=== PATIENT | female | born 1975 | race Caucasian/White ===

== ENCOUNTER 2016-09-14 15:59 | Emergency (ER) | payer SELFPAY ==
[~2016-09-14] VITALS: Ht 157.5 cm; Wt 108.0 kg
[2016-09-14 16:01] VITALS: BP 177/95; PULSE 78; RESP 18; TEMP 98.1; O2SAT 95
[2016-09-14] MEDS ORDERED: predniSONE 20 MG TAB PO ONE (18:15)
[2016-09-14] MEDS ORDERED: RESP: ALBUTEROL 2.5 MG/3 ML NEB (SCH) INH ONE (18:15)
--- NOTE | 2016-09-14 18:16 | PD ---
HPI Chief Complaint: Cold / Flu Symptoms Time Seen by Provider: 18:10 Travel History International Travel<30 days: No Contact w/Intl Traveler<30days: No Traveled to known affect area: No History of Present Illness HPI 41-year-old female presents to the emergency Department with complaint of cough , nasal congestion, low-grade fever 3 days. Reports MAXIMUM TEMPERATURE of 99.6 yesterday. Denies ear pain or sore throat. Reports chest tightness. Denies chest pain, shortness of breath. Denies abdominal pain, nausea, vomiting. This cough exacerbations are horrible to the point where she feels like she can't catch her breath during them. Denies wheezing. Denies history of asthma, COPD. Denies tobacco use. Has not taken any medications or tried any treatments to alleviate her symptoms. No known aggravating or relieving factors. Allergies to shellfish. No other modifying factors or associated signs and symptoms. PFSH Past Medical History Hx Anticoagulant Therapy: No Cardiovascular Problems: Yes (heart murmur) Chemotherapy: No Cerebrovascular Accident: No Diabetes: No Diminished Hearing: No Respiratory: No Myocardial Infarction: No ?: Not : 1 Para: 0 Miscarriage: 0 : 1 Past Surgical History Hysterectomy: No Social History Alcohol Use: No Tobacco Use: No Substance Use: No Allergies-Medications (Allergen,Severity, Reaction): Coded Allergies: Shellfish (Verified Allergy, Severe, 09/14/16) Reported Meds & Prescriptions Reported Meds & Active Scripts Active Azithromycin 500 Mg Tab 500 Mg PO DAILY Nasonex Nasal Rudy (Mometasone Furoate) 50 Mcg/Act Naspr 2 Rudy EACH NARE DAILY PRN Tessalon Perles (Benzonatate) 100 Mg Cap 100 Mg PO TID PRN Deltasone (Prednisone) 20 Mg Tab 40 Mg PO DAILY 4 Days start 09/15/2016 Proair Hfa 8.5 GM Inh (Albuterol Sulfate) 90 Mcg/Act Aer 2 Puff INH Q4-6H PRN 108 mcg/actuation Review of Systems Except as stated in HPI: all other systems reviewed are Neg Physical Exam Narrative GENERAL: Well-nourished, well-developed patient, in no acute distress; afebrile , nontoxic-appearing SKIN: Warm and dry. No rash. HEAD: Atraumatic. Normocephalic. EYES: Pupils equal and round at 3 mm with brisk reaction. No scleral icterus. No injection or drainage. PERRLA. ENT: Mucosa pink and moist. No erythema or exudates. No uvular edema. No uvular , palatal, or tonsillar deviation. Airway patent. EARS: Bilateral pinnae and external canals appear within normal limits. Bilateral tympanic membranes without erythema, dullness or perforation. NECK: Trachea midline. No lymphadenopathy. CARDIOVASCULAR: Regular rate and rhythm. No murmur appreciated. RESPIRATORY: No accessory muscle use. Clear to auscultation with decreased lung sounds in bilateral bases. Breath sounds equal bilaterally. GASTROINTESTINAL: Abdomen soft, non-tender, nondistended. Hepatic and splenic margins not palpable. Bowel sounds are active 4 quadrants. MUSCULOSKELETAL: No obvious deformities. No clubbing. No cyanosis. No edema. NEUROLOGICAL: Awake and alert. Oriented 3. No obvious cranial nerve deficits. Motor grossly within normal limits. Normal speech. Moves all extremities. 5/5 strength to all extremities. PSYCHIATRIC: Appropriate mood and affect; insight and judgment normal. Data Data Last Documented VS Vital Signs Date Time Temp Pulse Resp B/P Pulse Ox O2 Delivery O2 Flow Rate FiO2 09/14/16 16:01 98.1 78 18 177/95 95 Room Air Orders Influenzae A/B Antigen (09/14/16 18:03) Chest, Single Ap (09/14/16 18:03) Prednisone (Deltasone) (09/14/16 18:15) Albuterol Neb (Albuterol Neb) (09/14/16 18:15) MDM Medical Decision Making Medical Screen Exam Complete: Yes Emergency Medical Condition: Yes Medical Record Reviewed: Yes Differential Diagnosis Bronchitis, influenza, pneumonia, upper respiratory infection Narrative Course 41-year-old female with cold/flu symptoms 3 days. Patient is afebrile nontoxic appearing in the ER. Reports MAXIMUM TEMPERATURE 99.6 yesterday. Lung sounds are clear and equal with decreased lung sounds in bilateral bases. She is in no acute distress and without retractions or tachypnea. Oxygen saturation is 95% on room air. Influenza and chest x-ray ordered. Albuterol nebulizer and Deltasone ordered. 1852: Influenza negative. Patient reports improvement in symptoms after breathing treatment. Denies chest tightness at this time. 1909: Chest x-ray with no acute findings. Discussed viral illness and symptoms treatment. Tessalon Perles, pro-air inhaler, Deltasone, Nasonex nasal spray prescribed for home. Patient is requesting antibiotics for home. I discussed viral illness and antibiotic therapy and patient verbalized understanding and agreement and still is requesting a a prescription. Azithromycin prescribed for home. Patient is medically cleared and stable for discharge. Discussed reasons to return to the emergency department. Instructed patient to follow up with primary care provider. Patient agrees with treatment plan. The patients vital signs are stable and the patient is stable for outpatient follow-up and treatment. Patient discharged home, stable and in no acute distress. Diagnosis Primary Impression: Bronchitis Referrals: Primary Care Physician Patient Instructions: Acute Bronchitis (ED), Cold Symptoms (ED), General Instructions, Safe Use of Cough and Cold Medicines (ED) Departure Forms: Tests/Procedures, Work Release Enter return to work date: Sep 15, 2016 Additional Instructions: Use Albuterol inhaler as prescribed Take oral steroids as prescribed and complete full course Use Tessalon Perles as prescribed to decrease coughing spasms [id number] decongestants or antihistamines as directed and as needed for symptom management Your cough can last 4-6 weeks Drink plenty of fluids to prevent dehydration Use hot air humidifier to decrease cough exacerbation Turn off ceiling fans and sleep with head of bed elevated Avoid triggers such as second hand smoke, dust, known allergens Follow-up with your primary care provider Return to the emergency department immediately with worsening of symptoms Med/Other Pt SpecificInfo: Prescription(s) given Scripts Azithromycin 500 Mg [id number] Mg PO DAILY #5 TAB Ref 0 Prov:Sienna CervantesP 09/14/16 Mometasone Nasal Rudy (Nasonex Nasal Rudy)50 Mcg/Act Naspr2 Rudy EACH NARE DAILY PRN (NASAL CONGESTION) #1 BOTTLE Ref 0 Prov:Sienna Cervantes OPERATIONS LOGISTICS ANALYST 09/14/16 Benzonatate (Tessalon Perles)100 Mg [id number] Mg PO TID PRN (COUGH) #20 CAP Ref 0 Prov:Sienna Cervantes OPERATIONS LOGISTICS ANALYST 09/14/16 Prednisone (Deltasone)20 Mg Tab40 Mg PO DAILY 4 Days Ref 0 start 09/15/2016 Prov:Sienna Cervantes OPERATIONS LOGISTICS ANALYST 09/14/16 Albuterol 8.5 GM Inh (Proair Hfa 8.5 GM Inh)90 Mcg/Act Aer2 Puff INH Q4-6H PRN ( SOB/WHEEZING) #1 INHALER Ref 0 108 mcg/actuation Prov:Sienna Cervantes 09/14/16 Disposition: 01 DISCHARGE HOME Condition: Stable Sienna Cervantes Sep 14, 2016 18:16
[2016-09-14] MEDS ORDERED: BENZ100 PO (18:33)
[2016-09-14] MEDS ORDERED: AZIT500T2 PO (18:33)
[2016-09-14] MEDS ORDERED: ALBUAER3 INH (18:33)
[2016-09-14] MEDS ORDERED: MOME17I EACH NARE (18:33)
[2016-09-14] MEDS ORDERED: PRED-503 PO (18:33)
--- NOTE | 2016-09-14 19:27 | RADRPT ---
EXAM DATE/TIME: 09/14/2016 18:45 [facility] COMPARISON: No previous studies available for comparison. INDICATIONS : Cough, cold symptoms. MEDICAL HISTORY : None. SURGICAL HISTORY : None. ENCOUNTER: Initial ACUITY: 3 days PAIN SCORE: 2/10 LOCATION: chest FINDINGS: A single view of the chest demonstrates the lungs to be symmetrically aerated without evidence of mas s, infiltrate or effusion. The cardiomediastinal contours are unremarkable. Osseous structures are intact. CONCLUSION: No acute disease. Mohamud Ross MD on September 14, 2016 at 19:26 Board Certified Radiologist. This report was verified electronically.
== END 2016-09-14 19:18 | disposition home or self-care (01) ==
LOC: NEPB 15:59
DX: J40 Bronchitis, not specified as acute or chronic (principal); R09.81 Nasal congestion; R50.9 Fever, unspecified; R07.89 Other chest pain; Z86.79 Personal history of other diseases of the circulatory system
CPT/HCPCS: 71010; 87804; 94664; 99283; J7512; J7613